=== PATIENT | female | born 1975 | race Caucasian/White ===

== ENCOUNTER 2022-09-02 11:24 | Outpatient (CLI) | payer OTHER, SELFPAY | END 2022-09-02 11:25 | disposition home or self-care (01) | PROVIDERS: PCP Internal Medicine; Visit Provider Internal Medicine | DX: R53.81 Other malaise (principal); R45.86 Emotional lability | CPT/HCPCS: 80053; 82728; 84443; 86140 ==

== ENCOUNTER 2022-10-15 14:28 | Outpatient (CLI) | payer OTHER, SELFPAY ==
--- NOTE | 2022-10-15 14:40 | CRLHL7_ITS ---
For Patients: As a result of the Century Cures Act, medical imaging exams and procedure reports are released immediately into your electronic medical record. You may view this report before your referring provider. If you have questions, please contact your health care provider. BILATERAL SCREENING MAMMOGRAM WITH COMPUTER-AIDED DETECTION AND TOMOSYNTHESIS TECHNIQUE: CC, MLO and Implant displaced views were obtained. These mammographic images have been obtained using full-field digital technique. These mammographic images were interpreted with the benefit of computer-aided detection. Breast Tomosynthesis was used in this interpretation. COMPARISON FILM: 07/26/21, 01/04/20, 10/01/18. FINDINGS: There are scattered areas of fibroglandular density IMPRESSION: There is no radiographic evidence for malignancy. ASSESSMENT: BI-RADS Category 2: Benign RECOMMENDATION: Routine screening mammogram in 1 year. A lay language report of this examination will be provided to the patient. Paul Gonzalez M.D. Diagnostic Radiologist [email or web address] CONI/Dictated by: Paul Gonzalez MD @ 10/16/2022 9:11:00 AM (Electronically Signed)
== END 2022-10-15 14:29 | disposition home or self-care (01) ==
LOC: MAMMO 14:29
PROVIDERS: PCP Internal Medicine; Visit Provider Internal Medicine
DX: Z12.31 Encounter for screening mammogram for malignant neoplasm of breast (principal)
CPT/HCPCS: 77063; 77067

== ENCOUNTER 2024-01-12 16:00 | Outpatient (RCR) | payer BC, SELFPAY | END 2024-02-24 15:41 | disposition home or self-care (01) | PROVIDERS: PCP Internal Medicine; Visit Provider Internal Medicine | DX: M54.42 Lumbago with sciatica, left side (principal); Z51.89 Encounter for other specified aftercare | CPT/HCPCS: 97110; 97140; 97161 ==

== ENCOUNTER 2024-01-25 16:22 | Outpatient (CLI) | payer BC, SELFPAY ==
--- NOTE | 2024-01-25 19:00 | CRLHL7_ITS ---
For Patients: As a result of the Century Cures Act, medical imaging exams and procedure reports are released immediately into your electronic medical record. You may view this report before your referring provider. If you have questions, please contact your health care provider. INDICATION: Low back pain. TECHNIQUE: Sagittal and axial T1, sagittal axial T2 and sagittal STIR images were obtained. FINDINGS: Sagittal alignment of the lumbar spine within normal limits. Lower lumbar disc degeneration. No acute compression fractures. The distal spinal cord and conus medullaris appear normal. The conus terminates normally at the upper L1 level. Incidentally noted small left-sided renal cyst, approximately 2 cm. No posterior disc herniation or stenosis at the T11-12, T12-L1, L1-2, or L2-3 levels. At L3-4 normal disc height and disc hydration without disc herniation or stenosis of the spinal canal or neural foramen. At L4-5 degenerative disc space narrowing. Modic type 2 degenerative endplate signal changes. Mild circumferential annular bulge and mild facet arthropathy there is mild deformity of the ventral thecal sac but the lateral recesses and neural foramen appear adequately patent. At L5-S1 there is degenerative disc desiccation. There is a moderate sized left paracentral and caudal disc extrusion. (7 mm AP. Extends 6 mm below the disc space level.) There is associated deformity of thecal sac and compression of the traversing left S1 nerve root. Disc extrusion also contacts but does not compress the traversing right S1 nerve root. Neural foramen appear adequately patent. IMPRESSION: 1. At L5-S1 a moderate-sized left paracentral and caudal disc extrusion with left S1 nerve root impingement. 2. At L4-5 advanced disc degeneration mild annular bulge without stenosis. Dictated by Taj Caro MD @ 01/26/2024 8:51:47 AM (Electronically Signed)
== END 2024-01-25 16:23 | disposition home or self-care (01) ==
LOC: MRI 16:22
PROVIDERS: PCP Internal Medicine; Visit Provider Family Medicine
DX: M54.50 Low back pain, unspecified (principal); M51.36 Other intervertebral disc degeneration, lumbar region; G89.29 Other chronic pain
CPT/HCPCS: 72148

== ENCOUNTER 2024-03-02 10:30 | Outpatient (CLI) | payer BC, SELFPAY ==
[2024-03-04 11:19] LABS: HPV Source Cervix; HPV, High Risk by TMA Not Detected
== END 2024-03-02 10:31 | disposition home or self-care (01) ==
PROVIDERS: PCP Internal Medicine; Visit Provider Registered Nurse
DX: Z12.4 Encounter for screening for malignant neoplasm of cervix (principal)
CPT/HCPCS: 87624; 87625; 88141; 88142

== ENCOUNTER 2024-03-15 08:50 | Outpatient (CLI) | payer BC, SELFPAY | END 2024-03-15 08:51 | disposition home or self-care (01) | LOC: INJ CL 08:53 | PROVIDERS: PCP Internal Medicine; Visit Provider Family Medicine | DX: M54.16 Radiculopathy, lumbar region (principal); M51.26 Other intervertebral disc displacement, lumbar region | CPT/HCPCS: 64483; J1100; Q9966 ==

== ENCOUNTER 2024-04-13 14:45 | Outpatient (RCR) | payer BC, SELFPAY | END 2024-08-11 23:59 | disposition home or self-care (01) | PROVIDERS: PCP Internal Medicine; Visit Provider Family Medicine | DX: M54.50 Low back pain, unspecified (principal); G89.29 Other chronic pain; Z51.89 Encounter for other specified aftercare | CPT/HCPCS: 97110; 97140; 97162 ==

== ENCOUNTER 2024-09-29 14:34 | Outpatient (CLI) | payer BC, SELFPAY ==
--- NOTE | 2024-09-29 14:40 | CRLHL7_ITS ---
For Patients: As a result of the Century Cures Act, medical imaging exams and procedure reports are released immediately into your electronic medical record. You may view this report before your referring provider. If you have questions, please contact your health care provider. BILATERAL DIGITAL SCREENING MAMMOGRAM WITH COMPUTER-AIDED DETECTION AND TOMOSYNTHESIS CLINICAL HISTORY: Routine screening exam. COMPARISON: 10/15/22, 07/26/21, 01/04/20 TECHNIQUE: Digital mammogram in CC and MLO projections including computer-aided detection (CAD). Tomosynthesis was used in this interpretation. BREAST COMPOSITION: There are scattered areas of fibroglandular density. FINDINGS: RIGHT Breast: Focal asymmetric density within the upper-outer quadrant 3 cm from the nipple. Intact implant. LEFT Breast: No suspicious findings. Intact implant. IMPRESSION: RIGHT breast asymmetry/mass. RECOMMENDATIONS: Additional mammographic views of the RIGHT breast including 3D spot compression CC/MLO. RIGHT breast ultrasound may also be required. The [facility] will contact the patient. A lay language report of this examination will be provided to the patient. BI-RADS Category 0: Incomplete: Need Additional Imaging Evaluation Dictated by Paul Gonzalez MD @ 10/06/2024 1:32:26 PM Dictated by: Paul Gonzalez MD @ 10/06/2024 13:32:35 (Electronically Signed)
== END 2024-09-29 14:35 | disposition home or self-care (01) ==
LOC: MAMMO 14:34
PROVIDERS: PCP Internal Medicine; Visit Provider Internal Medicine
DX: Z12.31 Encounter for screening mammogram for malignant neoplasm of breast (principal); N63.10 Unspecified lump in the right breast, unspecified quadrant; Z98.82 Breast implant status
CPT/HCPCS: 77063; 77067

== ENCOUNTER 2024-10-19 10:37 | Outpatient (CLI) | payer BC, SELFPAY ==
--- NOTE | 2024-10-19 10:45 | CRLHL7_ITS ---
For Patients: As a result of the Century Cures Act, medical imaging exams and procedure reports are released immediately into your electronic medical record. You may view this report before your referring provider. If you have questions, please contact your health care provider. DIGITAL DIAGNOSTIC RIGHT MAMMOGRAM USING TOMOSYNTHESIS AND COMPUTER-AIDED DETECTION RIGHT BREAST ULTRASOUND CLINICAL HISTORY: RIGHT breast mass/asymmetry. COMPARISON: 09/29/24, 07/05/21, 04/12/20. TECHNIQUE: Digital RIGHT mammogram in two projections. Tomosynthesis and CAD were used in this interpretation. Real-time ultrasound imaging of RIGHT breast with imaging documentation. Scanning was performed by both the technologist and the radiologist. BREAST COMPOSITION: There are scattered areas of fibroglandular density. FINDINGS: 3D spot compression CC/MLO RIGHT breast mammogram images submitted. Persistent nodular density with microcalcifications is present within the lateral RIGHT breast. Targeted RIGHT breast ultrasound performed. At 11 o`clock 5 cm from the nipple there is a lobular hypoechoic solid nodule containing microcalcifications corresponding to the mammogram which measures 7 x 3 x 11 millimeters. A smaller similar lesion is present measuring 5 x 2 x 5 millimeters at 10 o`clock 3 cm from the nipple. These lesions are 1.5 cm apart. IMPRESSION: Two suspicious hypoechoic macrolobular solid nodules with microcalcifications within the RIGHT breast in the upper outer quadrant, one measuring 7 x 3 x 11 millimeters and the second measuring 5 x 2 x 5 millimeters. RECOMMENDATIONS: Ultrasound-guided core needle biopsy of both lesions. A lay language report of this examination will be provided to the patient. BI-RADS Category 4: Suspicious Dictated by Paul Gonzalez MD @ 10/19/2024 12:15:57 PM jj/Dictated by: Paul Gonzalez MD @ 10/19/2024 12:15:00 PM (Electronically Signed)
--- NOTE | 2024-10-19 11:15 | CRLHL7_ITS ---
For Patients: As a result of the Cures Act, medical imaging exams and procedure reports are released immediately into your electronic medical record. You may view this report before your referring provider. If you have questions, please contact your health care provider. SEE DIGITAL DIAGNOSTIC RIGHT MAMMOGRAM PERFORMED SAME DAY CRL:eliazar perea/Dictated by: Paul Gonzalez MD @ 10/19/2024 12:16:00 PM (Electronically Signed)
== END 2024-10-19 10:38 | disposition home or self-care (01) ==
LOC: MAMMO 10:38
PROVIDERS: PCP Internal Medicine; Visit Provider Internal Medicine
DX: N63.10 Unspecified lump in the right breast, unspecified quadrant (principal); R92.8 Other abnormal and inconclusive findings on diagnostic imaging of breast
CPT/HCPCS: 76642; 77065; G0279

== ENCOUNTER 2024-10-31 09:06 | Outpatient (CLI) | payer BC, SELFPAY ==
--- NOTE | 2024-10-31 09:15 | CRLHL7_ITS ---
For Patients: As a result of the Century Cures Act, medical imaging exams and procedure reports are released immediately into your electronic medical record. You may view this report before your referring provider. If you have questions, please contact your health care provider. ULTRASOUND-GUIDED VACUUM-ASSISTED BREAST BIOPSY OF TWO SITES AND POST-BIOPSY DIGITAL MAMMOGRAM FOR BIOPSY MARKER PLACEMENT CLINICAL HISTORY: Indeterminate hypoechoic lesions. COMPARISON STUDIES: 10/19/2024. TECHNIQUE: Real-time ultrasound with image documentation was used for targeting the breast lesions. A core needle biopsy system was used to obtain core tissue samples with a 16 gauge device. Post-biopsy CC and ML digital mammograms were obtained to document position of the biopsy marker. CONSENT and TIME OUT: The procedure, risks, and alternatives were explained to the patient and a consent was signed. [place] Protocol was followed including pre-procedure verification that relevant information/documentation was available, reviewed and properly matched to the patient; consent accurate and complete; and equipment and supplies available. Time Out was conducted just prior to starting procedure to verify the four required elements: patient identity, correct side/site marked (if applicable), procedure, relevant images/results properly labeled and displayed (if applicable). PROCEDURE: All biopsies were performed in a similar manner. The patient was positioned supine on the ultrasound table. The breast was prepped with ChloraPrep. 5 cc of 1% lidocaine was injected for local anesthesia. Core samples were obtained. A sterile metal biopsy clip was placed percutaneously to naina the lesion position within the breast. The specimens were placed in 10% formalin and sent to the Pathology Department. Pressure was held on the biopsy site until all bleeding subsided. The skin incision was closed with Steri-Strips. An ice pack was positioned over the biopsy site. The patient tolerated the procedure well. Post-biopsy instructions were reviewed with the patient, and a written copy was given to her. SITE A: LATERALITY: RIGHT breast. LESION: Hypoechoic lesion 11 o`clock, 5 cm from the nipple, measuring 7 x 3 x 11 mm. SUSPICION: Intermediate. NUMBER OF SAMPLES: 5. BIOPSY CLIP SHAPE: Oval. PROXIMITY OF CLIP TO TARGET: Within the lesion. SITE B: LATERALITY: RIGHT breast. LESION: Hypoechoic lesion 10 o`clock, 3 cm from the nipple, measuring 5 x 2 x 5 mm. SUSPICION: Intermediate. NUMBER OF SAMPLES: 5. BIOPSY CLIP SHAPE: HydroMARK. PROXIMITY OF CLIP TO TARGET: Within the lesion. DISTANCE BETWEEN: Sites A and B: 1.5 cm. IMPRESSION: Ultrasound-guided breast biopsy of two sites. When the pathology report is available, an addendum to this report will be made. ACR not applicable. Dictated by Paul Gonzalez MD @ 10/31/2024 12:17:11 PM /sp SP/Dictated by: Paul Gonzalez MD @ 10/31/2024 12:17:00 PM (Electronically Signed)
--- NOTE | 2024-10-31 10:00 | CRLHL7_ITS ---
For Patients: As a result of the Cures Act, medical imaging exams and procedure reports are released immediately into your electronic medical record. You may view this report before your referring provider. If you have questions, please contact your health care provider. PLEASE SEE RIGHT ULTRASOUND-GUIDED TWO-SITE BIOPSY OF SAME DAY. CRL:sp SP/Dictated by: Paul Gonzalez MD @ 10/31/2024 12:08:00 PM (Electronically Signed)
== END 2024-10-31 09:07 | disposition home or self-care (01) ==
LOC: US 09:06
PROVIDERS: PCP Internal Medicine; Visit Provider Internal Medicine
DX: R92.8 Other abnormal and inconclusive findings on diagnostic imaging of breast (principal); N62 Hypertrophy of breast; N63.10 Unspecified lump in the right breast, unspecified quadrant
CPT/HCPCS: 19083; 77065; 88305; A4648; A4649

== ENCOUNTER 2025-04-24 10:28 | Outpatient (CLI) | payer BC, SELFPAY ==
--- NOTE | 2025-04-24 10:45 | CRLHL7_ITS ---
For Patients: As a result of the Cures Act, medical imaging exams and procedure reports are released immediately into your electronic medical record. You may view this report before your referring provider. If you have questions, please contact your health care provider. RIGHT DIAGNOSTIC IMPLANTS MAMMOGRAM WITH COMPUTER-AIDED DETECTION AND TOMOSYNTHESIS RIGHT BREAST ULTRASOUND CLINICAL HISTORY: RIGHT diagnostic mammogram with implants, 6-month follow-up. COMPARISON: 10/31/2024, 10/29/2024, 10/19/2024. TECHNIQUE: Digital RIGHT mammogram in two projections with computer-aided detection. Tomosynthesis was used in this interpretation. Real-time ultrasound imaging of RIGHT breast with imaging documentation. BREAST COMPOSITION: There are scattered areas of fibroglandular density. FINDINGS: RIGHT breast mammogram images submitted. RIGHT breast implant is intact. Post biopsy changes noted. No architectural distortion or suspicious calcifications. No adenopathy. Targeted RIGHT breast ultrasound performed. At 10 o`clock, 3 cm from the nipple, there is a solid hypoechoic previously biopsied nodule which measures 11 x 2 x 4 mm. Also, at 11 o`clock, 5 cm from the nipple, there is a small previously biopsied nodule which measures 2 x 6 x 8 mm. IMPRESSION: Similar previously biopsied benign lesions. No suspicious findings. RECOMMENDATIONS: Resume routine screening mammography. A lay language report of this examination will be provided to the patient. BI-RADS Category 2: Benign Dictated by Paul Gonzalez MD @ 04/24/2025 11:52:59 AM /sp SP/Dictated by: Paul Gonzalez MD @ 04/24/2025 11:52:00 AM (Electronically Signed)
--- NOTE | 2025-04-24 11:15 | CRLHL7_ITS ---
For Patients: As a result of the Century Cures Act, medical imaging exams and procedure reports are released immediately into your electronic medical record. You may view this report before your referring provider. If you have questions, please contact your health care provider. PLEASE SEE RIGHT BREAST DIAGNOSTIC MAMMOGRAM PERFORMED SAME DAY. CRL:sp SP/Dictated by: Paul Gonzalez MD @ 04/24/2025 11:53:00 AM (Electronically Signed)
== END 2025-04-24 10:29 | disposition home or self-care (01) ==
LOC: MAMMO 10:29
PROVIDERS: PCP Internal Medicine; Visit Provider Internal Medicine
DX: N63.10 Unspecified lump in the right breast, unspecified quadrant (principal); R92.8 Other abnormal and inconclusive findings on diagnostic imaging of breast; Z98.82 Breast implant status
CPT/HCPCS: 76642; 77065; G0279